=== PATIENT | female | born 1960 | race Caucasian/White ===

== ENCOUNTER → 2018-09-10 | Outpatient (CLI) | payer OTHER ==
--- NOTE | 2018-09-10 17:35 | PCVCIMAG ---
APPROVED REPORT Study performed: 09/10/2018 17:10:54 EXAM: Comprehensive 2D, Doppler, and color-flow Echocardiogram Patient Location: Echo lab Room #: 3Status: routine BSA: 1.98 HR: 70 bpmBP: 140/80 mmHg Rhythm: NSR Other Information Study Quality: Adequate Indications Dyspnea 2D Dimensions IVSd: 9.48 (7-11mm)LVOT Diam: 22.70 (18-24mm) LVDd: 40.45 mm PWd: 7.49 (7-11mm)Ascending Ao: 34.24 (22-36mm) LVDs: 23.69 (25-40mm) Left Atrium: 33.65 (27-40mm) Aortic Root: 27.98 mm LV Single Plane 4CH: 58.61 % LV Single Plane 2CH: 59.64 % Biplane EF: 60.0 % Volumes Left Atrial Volume (Systole) Single Plane 4CH: 57.65 mLSingle Plane 2CH: 56.92 mL Biplane LA Volume: 59.00 mLLA ESV Index: 30.00 mL/m2 Aortic Valve AoV Peak Charan.: 1.27 m/s AO Peak Gr.: 6.42 mmHgLVOT Max P.35 mmHg LVOT Max V: 0.90 m/s MARIE Vmax: 2.88 cm2 Mitral Valve E/A Ratio: 1.4 MV Decel. Time: 83.68 ms MV E Max Charan.: 0.90 m/s MV A Charan.: 0.64 m/s IVRT: 69.20 ms Pulmonary Valve PV Peak Charan.: 0.89 m/sPV Peak Gr.: 3.18 mmHg Tricuspid Valve TR Peak Charan.: 2.30 m/s TR Peak Gr.: 21.25 mmHg TV Vmax: 0.62 m/sPA Pressure: 28.00 mmHg Left Ventricle The left ventricle is normal size. There is normal LV segmental wall motion. There is normal left ventricular wall thickness. Left ventricular systolic function is normal. The left ventricular ejection fraction is within the normal range. LVEF is 60%. Left ventricular filling pattern is normal for age. Right Ventricle The right ventricle is normal size. The right ventricular systolic function is normal. Atria The left atrium size is normal. The right atrium size is normal. Aortic Valve Aortic valve is trileaflet. The aortic valve is normal in structure and function. No aortic regurgitation is present. There is no aortic valvular stenosis. Mitral Valve The mitral valve is normal in structure. Trace to mild mitral regurgitation. No evidence of mitral valve stenosis. Tricuspid Valve The tricuspid valve is normal in structure. Trace to mild tricuspid regurgitation with a PA pressure of 28 mmHg. No pulmonary hypertension. Pulmonic Valve The pulmonary valve is normal in structure. There is no pulmonic valvular regurgitation. Great Vessels The aortic root is normal in size. The ascending aorta is normal in size. Aortic arch is normal in caliber. IVC is normal in size and collapses >50% with inspiration. Pericardium There is no pericardial effusion. There is no pleural effusion. <Conclusion> LVEF is 60%. Left ventricular filling pattern is normal for age. The right ventricle is normal size. The left atrium size is normal. Aortic valve is trileaflet. The aortic valve is normal in structure and function. Trace to mild mitral regurgitation. Trace to mild tricuspid regurgitation with a PA pressure of 28 mmHg. No pulmonary hypertension. The aortic root is normal in size. The ascending aorta is normal in size. Aortic arch is normal in caliber. There is no pericardial effusion.
== END | disposition home or self-care (01) ==
LOC: PCVCIMAG 15:36
PROVIDERS: ATTEND Internal Medicine Rheumatology
DX: I08.1 Rheumatic disorders of both mitral and tricuspid valves (principal); R06.00 Dyspnea, unspecified
CPT/HCPCS: 93306